=== PATIENT | male | born 1970 | race Caucasian/White ===

== ENCOUNTER 2018-04-30 00:11 | Emergency (ER) | payer OTHER ==
[~2018-04-30] VITALS: Ht 180.3 cm; Wt 116.6 kg
[~2018-04-30 00:11] MED LIST: BETAPACE AF80 MG PO; CEPHALEXIN 500500 M3 PO; DOXYCYCLINE 10100 MG PO; GLIPIZIDE ER5 MG PO; GLYBURIDE 2.52.5 MG PO; GLYBURIDE 5 MG T5 M1 PO; GLYBURIDE 5 MG T5 MG PO; HYDROCODONE-AP1 EAC6 PO; IBUPROFEN 800800 M1 PO; KEFLEX500 MG PO; LEVOTHYROXIN0.025 MG; LEVOTHYROXIN0.025 MG PO; LISINOPRIL40 MG PO; NORCO 5-325 TA1 EACH PO; PRINIVIL40 MG PO; SORINE 80 MG TA80 M1 PO; ZESTRIL40 MG PO; ZOLOFT100 MG PO
[2018-04-30] MEDS ORDERED: GLYBURIDE 5 MG T5 M1 PO (00:28)
[2018-04-30] MEDS ORDERED: PRINIVIL40 MG PO (00:28)
[2018-04-30] MEDS ORDERED: SYNTHROID25 MC1 PO (00:28)
[2018-04-30] MEDS ORDERED: ZOLOFT100 MG PO (00:28)
[2018-04-30] MEDS ORDERED: SORINE 80 MG TA80 M1 PO (00:28)
[2018-04-30 00:38] VITALS: BP 153/90
== END 2018-04-30 00:36 | disposition home or self-care (01) ==
LOC: M.ERS 00:11
DX: I48.91 Unspecified atrial fibrillation (principal); Z76.0 Encounter for issue of repeat prescription; E11.9 Type 2 diabetes mellitus without complications; I10 Essential (primary) hypertension; F17.210 Nicotine dependence, cigarettes, uncomplicated; Z88.2 Allergy status to sulfonamides; Z88.8 Allergy status to other drugs, medicaments and biological substances